=== PATIENT | female | born 2000 | race Caucasian/White ===

== ENCOUNTER 2021-01-26 21:55 | Emergency (ER) | payer OTHER, SELFPAY ==
[2021-01-26 22:07] VITALS: BP 116/58; PULSE 86; RESP 20; TEMP 36.4; O2SAT 97
[2021-01-26 22:31] LABS: Add Urine Microscopic? YES; Appearance Urine Cloudy (Clear); Bilirubin Urine Negative (Negative); Blood Urine 3+ (Negative); Color Urine Yellow (Yellow); Glucose Urine UA Negative (Negative); Ketones Urine Negative (Negative); Leukocyte Esterase Ur 2+ LEU/UL (Negative); Mucus Urine Rare /lpf; Nitrate Urine Negative (Negative); Protein Urine 2+ mg/dL (Negative); RBC Urine >75 /hpf (0-2); Specific Grav Ur 1.023 (1.001-1.035); Squamous Epithelial Cell Urine Few /hpf (Few); Urobilinogen Urine Negative mg/dL (<2.0); WBC Urine >75 /hpf
--- NOTE | 2021-01-26 22:43 | ED.GENADULT ---
HPI - General Adult General Chief complaint: Urogenital-Female Stated complaint: uti symptoms Time Seen by Provider: 01/26/21 22:23 Source: RN notes reviewed History of Present Illness HPI narrative: Patient presents emergency department from home for dysuria. Patient states symptoms began this morning. She states she has noticed dysuria as well as urinary frequency and some cloudiness to her urine. Patient denies any fevers or chills abdominal pain nausea or vomiting or any other symptoms states she has not taken any medication for the symptoms Related Data Allergies Allergy/AdvReac Type Severity Reaction Status Date / Time No Known Allergies Allergy Verified 01/26/21 22:10 Review of Systems Review of Systems: Gen.: Denies fevers or chills Respiratory: Denies shortness of breath or cough CV: Denies chest pain or palpitations GI: Denies abdominal pain nausea, emesis or diarrhea see HPI Musculoskeletal: Denies back pain or muscle pain Neuro: Denies weakness Skin: Denies rash Except as documented, all other systems reviewed and negative [facility] Past Medical History Medical History (Updated 01/26/21 @ 22:45 by Sonny Botello DO) Patient denies significant medical history Social History Social History (Updated 01/26/21 @ 22:44 by Sonny Botello DO) Smoking status: Former smoker Exam Narrative: APPEARANCE: No acute distress, nontoxic, resting in bed EYES: EOMI HEENT: Normocephalic, atraumatic, RESPIRATORY: No respiratory distress Clear to auscultation bilaterally with no rhonchi wheezing or rales. CARDIOVASCULAR: Regular rate and rhythm without murmurs rubs or gallops. ABDOMINAL: Soft, nontender, nondistended, no rebound or guarding MUSCULOSKELETAl: Moves all extremities NEURO: Awake and alert. Following commands, speech normal, no focal deficits SKIN:: Warm, dry. No rashes lesions or abrasions PSYCHIATRIC: Normal affect/mood, Course Course Emergency Course: Discussed with patient results of workup and diagnosis. Discussed need for follow-up with primary care, proper use of medication, and reasons to return to the emergency department. Patient understands and agrees to current treatment plan Vital Signs Vital signs: Vital Signs Temperature 97.6 F 01/26/21 22:07 Pulse Rate 86 01/26/21 22:07 Respiratory Rate 20 01/26/21 22:07 Blood Pressure 116/58 L 01/26/21 22:07 Pulse Oximetry 97 01/26/21 22:07 Temperature 97.6 F 01/26/21 22:07 Pulse Rate 86 01/26/21 22:07 Respiratory Rate 20 01/26/21 22:07 Blood Pressure 116/58 L 01/26/21 22:07 Pulse Oximetry 97 01/26/21 22:07 Medical Decision Making Vital Signs Vital Signs: Vital Signs Temperature 97.6 F 01/26/21 22:07 Pulse Rate 86 01/26/21 22:07 Respiratory Rate 20 01/26/21 22:07 Blood Pressure 116/58 L 01/26/21 22:07 Pulse Oximetry 97 01/26/21 22:07 Temperature 97.6 F 01/26/21 22:07 Pulse Rate 86 01/26/21 22:07 Respiratory Rate 20 01/26/21 22:07 Blood Pressure 116/58 L 01/26/21 22:07 Pulse Oximetry 97 01/26/21 22:07 Lab Data Labs: Lab Results 01/26/21 Range/Units 22:05 Urine Color Yellow (Yellow) Urine Appearance Cloudy H (Clear) Urine pH 7.0 (5.0-9.0) Ur Specific [place] 1.023 (1.001-1.035) Urine Protein 2+ H (Negative) mg/dL Urine Glucose (UA) Negative (Negative) mg/dL Urine Ketones Negative (Negative) mg/dL Ur Blood (Man) 3+ H (Negative) Urine Nitrate Negative (Negative) Urine Bilirubin Negative (Negative) Urine Urobilinogen Negative (<2.0) mg/dL Leukocyte Esterase Rfl 2+ H (Negative) HEYDI/UL Urine RBC >75 H (0-2) /hpf Urine WBC >75 H /hpf Ur Squamous Epith Cells Few (Few) /hpf Urine Mucus Rare /lpf UCG Bedside Result Negative Reference Range: Negative Urine Characteristics Cloudy
[2021-01-26] MEDS: NITROFURANTOIN MONOHYD MACROCR 100 MG CAP PO (22:58)
== END 2021-01-26 23:02 | disposition home or self-care (01) ==
LOC: ANHED 22:56
PROVIDERS: Emergency Medicine; Emergency Provider Emergency Medicine
DX: N39.0 Urinary tract infection, site not specified (principal); Z87.891 Personal history of nicotine dependence
CPT/HCPCS: 81001; 81025; 87077; 87086; 87088; 87186; 99283; A9270

== ENCOUNTER 2021-12-14 20:13 | Emergency (ER) | payer OTHER, SELFPAY ==
[2021-12-14 20:16] VITALS: BP 121/74; PULSE 104; RESP 20; TEMP 36.4; O2SAT 97
--- NOTE | 2021-12-14 20:30 | ED.URI ---
HPI - URI/Sore Throat General Chief Complaint: Upper Respiratory Infection Stated Complaint: URI x2-3 days Time Seen by Provider: 12/14/21 20:20 History of Present Illness HPI Narrative: Patient is a 21-year-old female here for evaluation of cough, sore throat, Congestion, shortness of breath for the past 3 days, progressing in severity. Patient states that she has attempted OTC cough medicine without significant relief. No difficulty swallowing, trismus, throat swelling. Denies any fevers, chills, nausea, vomiting, chest pain, leg swelling. She had COVID last month, her symptoms did improve, but she is requesting to be tested before she returns to work. She is previously healthy. Related Data Home Medications Medication Instructions Recorded Confirmed No Home Medications 12/14/21 12/14/21 Allergies Allergy/AdvReac Type Severity Reaction Status Date / Time No Known Allergies Allergy Verified 12/14/21 20:57 Review of Systems Review of Systems: Gen: Denies fevers or chills Eyes: Denies eye pain or visual change ENT: Reports congestion Respiratory: Reports cough and shortness of breath CV: Denies chest pain or palpitations GI: Denies abdominal pain nausea, emesis or diarrhea denies burning, urgency, frequency or hematuria Musculoskeletal: Denies back pain or muscle pain Neuro: Denies numbness, tingling, weakness or focal weakness Skin: Denies rash Except as documented, all other systems reviewed and negative PMFSH Past Medical History Medical History Patient denies significant medical history Social History Social History (Updated 01/26/21 @ 22:44 by Sonny Botello DO) Smoking status: Former smoker Exam Narrative: APPEARANCE: Well appearing, no pain in distress, well-nourished. Head: Normocephalic and atraumatic. EYES: Bilateral TMs are clear. No mastoid tenderness. PERRLA/EOMI, conjunctivae clear NOSE: No nasal drainage EARS: External ear normal in appearance THROAT: Oropharynx is clear. Mucous membranes are moist. NECK: Supple. No adenopathy, no masses. RESPIRATORY: Lungs are clear to auscultation. Airway patent, respirations nonlabored. no rales, rhonchi, wheezing. CARDIOVASCULAR: Regular rate and rhythm without murmurs, rubs, or gallops. ABDOMINAL: Normoactive bowel sounds. Soft, nontender, nondistended. No rebound tenderness or guarding. MUSCULOSKELETAL: Extremities are warm and well-perfused. Moves all extremities well. No edema. NEURO: Normal speech. No focal neurologic deficits. SKIN: Skin is warm and dry. No rashes. PSYCHIATRIC: Normal affect/mood. Course Vital Signs Vital signs: Vital Signs Temperature 97.6 F 12/14/21 20:16 Pulse Rate 104 H 12/14/21 20:16 Respiratory Rate 20 12/14/21 20:16 Blood Pressure 121/74 12/14/21 20:16 Pulse Oximetry 97 12/14/21 20:16 Temperature 97.6 F 12/14/21 20:16 Pulse Rate 104 H 12/14/21 20:16 Respiratory Rate 20 12/14/21 20:16 Blood Pressure 121/74 12/14/21 20:16 Pulse Oximetry 97 12/14/21 20:55 Oxygen Delivery Room Air 12/14/21 20:55 MDM - URI/Sore Throat MDM Narrative Medical decision making narrative: 21-year-old female here for evaluation of respiratory infectious type symptoms for the past 3 days, requesting COVID test for work. Patient is nontoxic-appearing with normal vital signs; slightly tacky upon arrival to 104 but not tachycardic however on examination. Her heart and lungs are clear to auscultation. COVID test was obtained and was negative. Patient declined chest x-ray; suspicion for pneumonia or other cardiopulmonary process is quite low given clear lung sounds and lack of systemic symptoms. She was reassured and encouraged to follow-up with primary care provider. She was given reasons to return to the ED and she voiced understanding. Lab Data Labs: Lab Results 12/14/21 Range/Units 20:45 SARS-CoV-2 RNA (RT-PCR)
[2021-12-14 20:55] VITALS: O2SAT 97
[2021-12-14 21:33] LABS: SARS-CoV-2 RNA PCR Negative
== END 2021-12-14 21:47 | disposition home or self-care (01) ==
PROVIDERS: Physician Assistant; Emergency Provider Emergency Medicine
DX: J06.9 Acute upper respiratory infection, unspecified (principal); Z87.891 Personal history of nicotine dependence; Z20.822 Contact with and (suspected) exposure to COVID-19
CPT/HCPCS: 99283; C9803; U0003; U0005

== ENCOUNTER 2022-08-01 12:22 | Emergency (ER) | payer OTHER, SELFPAY ==
[2022-08-01 12:26] VITALS: BP 128/85; PULSE 99; RESP 17; TEMP 36.8; O2SAT 99
--- NOTE | 2022-08-01 12:41 | PC.NURSE ---
Pt ambulates into ER c/o right eyelid swelling. States started last night after taking off her eyelashes. States she had discomfort last night but attributed it to removal of the lashes. This morning pt had swelling to her right eye lid. States she attempted to use a warm compress to help, but had little relief. Pt states she woke with greenish yellowish discharge that she washed away with this morning while washing her face. 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 States she took eye drops this morning which made the irritation worse. Pt denies any visions changes. The sclera of the right eye is red and has some yellowish white discharge. Conjunctiva also red.
--- NOTE | 2022-08-01 12:56 | ED.EYEPROB ---
HPI - Eye Problem General Chief complaint: Eye Problems Stated complaint: eye swelling Time Seen by Provider: 08/01/22 12:40 History of Present Illness HPI Narrative: Patient is a 22-year-old female presenting with right eye swelling. Patient states that she removed artificial lashes last night. States that she had some swelling around the right eye at that time. States that when she woke up this morning her upper eyelid was much more swollen. She denies vision changes or pain with eye movements. Denies photophobia. States that she is concerned for pinkeye. She does not wear contacts. Denies further complaints. Related Data Allergies Allergy/AdvReac Type Severity Reaction Status Date / Time No Known Allergies Allergy Verified 08/01/22 12:40 Review of Systems Review of Systems: All systems reviewed & are unremarkable except as noted in HPI and below PMFSH Past Medical History Medical History Patient denies significant medical history Social History Social History Smoking status: Former smoker Exam Narrative: GENERAL: Well-appearing, well-nourished, and in no acute distress. HEAD: Normocephalic, atraumatic. EYES: PERRLA and EOMI. mild right periorbital erythema and edema especially affecting the upper lid, conjunctiva is injected, no chemosis, no pain with extraocular eye movement, no proptosis ENT: Nares clear, no rhinorrhea or epistaxis. Mucous membranes moist. NECK: Supple. CHEST: No respiratory distress. HEART: Regular rate and rhythm. ABDOMEN: nondistended EXTREMITIES: Normal range of motion. No edema. SKIN: Warm, dry, no rash. NEURO: No focal deficits. Alert and oriented x3. PSYCH: Normal mood and affect. Course Vital Signs Vital signs: Vital Signs Temperature 98.2 F 08/01/22 12:26 Pulse Rate 99 08/01/22 12:26 Respiratory Rate 17 08/01/22 12:26 Blood Pressure 128/85 08/01/22 12:26 Pulse Oximetry 99 08/01/22 12:26 Oxygen Delivery Room Air 08/01/22 12:26 Temperature 98.2 F 08/01/22 12:26 Pulse Rate 87 08/01/22 14:22 Respiratory Rate 18 08/01/22 14:22 Blood Pressure 122/78 08/01/22 14:22 Pulse Oximetry 100 08/01/22 14:22 Oxygen Delivery Room Air 08/01/22 12:26 MDM - Eye Problem MDM Narrative Medical decision making narrative: Patient is a 22-year-old female presenting with right eye swelling. Patient is well-appearing and in no acute distress. Exam is remarkable for the above. Concern for periorbital cellulitis. Fluorescein exam shows no abnormal fluorescein uptake. No abrasions. Patient does state that she has had several weeks of sinus problems. We will get her started on Bactrim and Augmentin for periorbital cellulitis. I am not concerned for orbital cellulitis at this time. Advised that she follow-up with primary care. She states that she does not have a PCP so number will be provided. Appropriate return precautions were given. Patient voiced understanding and is agreeable with plan. Discharged in stable condition. Differential Diagnosis Differential diagnosis: Likely corneal abrasion, conjunctivitis, periorbital cellulitis and corneal ulcer Medical Records Attestation: I reviewed the patient's medical records. Critical Care Time Critical Care Time Critical Care Time: No Discharge Plan Discharge Clinical Impression: Periorbital cellulitis, Sinusitis Patient Disposition: Home, Self-Care Condition: Stable Instructions: Antibiotic Form, Sinusitis (ED), Periorbital Cellulitis (ED) Additional Instructions: Please complete the antibiotics as prescribed. We recommend following up closely with primary care to ensure your symptoms are improving. If your pain worsens, you have difficulty with eye movements, you have vision changes, or other concerning symptoms arise, please return to the ER. Prescriptions: New
[2022-08-01 14:22] VITALS: BP 122/78; PULSE 87; RESP 18; O2SAT 100
[2022-08-01] MEDS: AMOXICILLIN/CLAVULANATE K 875-125 MG TAB 1 TABLET PO (14:25)
[2022-08-01] MEDS: SULFAMETHOXAZOLE/TRIMETHOPRIM 800/160 MG DS TABLET 1 TAB PO (14:25)
== END 2022-08-01 14:28 | disposition home or self-care (01) ==
PROVIDERS: Emergency Provider Emergency Medicine
DX: L03.213 Periorbital cellulitis (principal); J32.9 Chronic sinusitis, unspecified; Z87.891 Personal history of nicotine dependence
CPT/HCPCS: 99283; A9270